=== PATIENT | female | born 1975 | race African-American/Black ===

== ENCOUNTER 2017-06-04 09:44 | Emergency (ER) | payer SELFPAY ==
[2017-06-04 10:03] VITALS: BMI 20.3
[2017-06-04] MEDS ORDERED: SODIUM CHLORIDE 1,000 ML IV STA (10:11)
[2017-06-04] MEDS ORDERED: ACETAMINOPHEN 1000 MG/100 ML VIAL (NON FORMULARY) IVPB ONE (10:11)
[2017-06-04] MEDS ORDERED: morphine CARPU-JECT 2 MG/1 ML DISP.SYRIN IVPUSH ONE (10:11)
[2017-06-04] MEDS ORDERED: ONDANSETRON 4 MG/2 ML VIAL IVPUSH ONE (10:11)
--- NOTE | 2017-06-04 10:17 | PDOC ---
History of Present Illness - General Chief Complaint: Pain Stated Complaint: ABD PAIN Time Seen by Provider: 06/04/17 10:00 History Source: Patient Exam Limitations: No Limitations - History of Present Illness Travel History: No Initial Comments: 06/04/17 10:12 This 41 yr old female with c/o severe abdominal cramps 04/08 causing vomiting and guarding to abd. she has attempted to use motrin but keeps vomiting it up after taking it. She is small frame. Last month she underwent similar pain and her [employer] with a finding + UTI, transvaginal neg for fibroids or ovarian cyst. Her tubes are tied and she has 4 live births without any misses/ . PMH: borderline HTN on no meds PSH: c section Meds none All: [facility] [employer] Dr. 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 Past History - Past Medical History Allergies/Adverse Reactions: Allergies Allergy/AdvReac Type Severity Reaction Status Date / Time No Known Allergies Allergy Verified 06/04/17 10:02 Home Medications: Ambulatory Orders Ibuprofen [Motrin -] 600 mg PO TID #21 tablet 06/04/17 Ondansetron [Zofran Odt -] 4 mg SL BID #14 od.tablet 06/04/17 Ranitidine [Zantac -] 150 mg PO BID #30 tablet 06/04/17 COPD: No DVT: No Thyroid Disease: No - Suicide/Smoking/Psychosocial Hx Smoking History: Never smoked Have you smoked in the past 12 months: No Number of Cigarettes Smoked Daily: 20 Information on smoking cessation initiated: No Hx Alcohol Use: No Drug/Substance Use Hx: No Substance Use Type: None Review of Systems - Review of Systems Able to Perform ROS?: Yes Constitutional: Yes: See HPI HEENTM: No: Symptoms Reported Respiratory: No: Symptoms reported Cardiac (ROS): No: Symptoms Reported ABD/GI: Yes: See HPI, Nausea, Poor Appetite, Poor Fluid Intake, Vomiting, Abdominal cramping, Tarry Stools. No: Abdominal Distended, Abd. Pain w/ defecation, Blood Streaked Bowels, Constipated, Diarrhea, Difficulty Swallowing , Rectal Bleeding, Indigestion : No: Burning, Dysuria, Discharge, Frequency, Hematuria, Pain Musculoskeletal: No: Symptoms Reported Integumentary: No: Symptoms Reported Neurological: No: Symptoms reported *Physical Exam - Vital Signs Last Vital Signs Temp Pulse Resp BP Pulse Ox 98.1 F 80 18 157/82 100 06/04/17 09:45 06/04/17 09:45 06/04/17 09:45 06/04/17 09:45 06/04/17 09:45 - Physical Exam General Appearance: Yes: Nourished, Thin HEENT: positive: Normal Voice Respiratory/Chest: positive: Lungs Clear Cardiovascular: positive: Regular Rate Gastrointestinal/Abdominal: positive: Tender, Flat, Soft, Guarding, Tenderness. negative: Organomegaly, Increased Bowel Sounds, Decreased BS, Protuberent, Distended, Hernia, Mass, Hepatomegaly, Spleenomegaly Musculoskeletal: positive: Normal Inspection Extremity: positive: Normal Inspection Integumentary: positive: Dry, Warm Neurologic: positive: Fully Oriented, Alert ED Treatment Course - LABORATORY CBC & Chemistry Diagram: 06/04/17 10:15 06/04/17 10:15 - RADIOLOGY Radiology Studies Ordered: Category Date Time Status TRANSVAGINAL ULTRASOUND US [US] Stat Ultrasound 06/04/17 10:11 Ordered Medical Decision Making - Medical Decision Making 06/04/17 10:20 This 41 yr old female with severe abdominal pain cramping seen in ER at bedside Abdominal pain is cramp like with n/v Afebrile Plan -UA -urine preg -labs -IVF -Zofran -tylenol and morphine -transvaginal u/s 06/04/17 12:19 ua neg labs stable pain resolving transvag shows 1.7 cm left ovarian cysgt will d/c with follow up and instructions *DC/Admit/Observation/Transfer Diagnosis at time of Disposition: Ovarian cyst Qualifiers: Laterality: left Qualified Code(s): N83.202 - Unspecified ovarian cyst, left side - Discharge Dispostion Disposition: HOME Condition at time of disposition: Stable Admit: No - Referrals - Patient Instructions Printed Discharge Instructions: DI for Dysmenorrhea, DI for Ovarian Cyst Additional Instructions: Discharge instruction 1. follow up with your [employer] this month and present your transvaginal u/s findings 2. take motrin for pain as needed. 3. use warm compress to the area of pain - Post Discharge Activity
[2017-06-04] MEDS ORDERED: ONDANSETRON 4 MG/2 ML VIAL ONE (10:20)
[2017-06-04] MEDS ORDERED: ACETAMINOPHEN INJECTION 100 ML IVPB ONE (10:20)
[2017-06-04] MEDS ORDERED: morphine SULFATE 4 MG/ML VIAL ONE (10:20)
[2017-06-04 10:34] LABS: BASOPHIL 0.3 % (0-2.0); EOSINOPHIL 0.2 % (0-4.5); MCH 26.4 pg (25.7-33.7); MCHC 32.6 g/dl (32.0-36.0); MEAN CELL VOLUME 81.2 fl (80-96); MEAN PLT VOLUME 8.4 fl (7.5-11.1); NEUTROPHILS 88.8 % (42.8-82.8); PLATELET COUNT 215 K/MM3 (134-434); RDW 14.1 % (11.6-15.6); WHITE BLOOD COUNT 10.2 K/mm3 (4.0-10.0)
[2017-06-04 10:38] LABS: URINE APPEARANCE SLCLOUDY; URINE BILIRUBIN NEGATIVE (NEGATIVE); URINE BLOOD 1+ (NEGATIVE); URINE COLOR YELLOW; URINE GLUCOSE (UA) NEGATIVE (NEGATIVE); URINE KETONE NEGATIVE (NEGATIVE); URINE NITRITE NEGATIVE (NEGATIVE); URINE UROBILINOGEN NEGATIVE mg/dL (0.2-1.0)
[2017-06-04 10:46] LABS: URINE PROTEIN 1+ (NEGATIVE)
[2017-06-04 10:58] LABS: ALBUMIN 4.7 g/dl (3.4-5.0); ANION GAP 6 (8-16); BILIRUBIN,TOTAL 0.8 mg/dL (0.2-1.0); CALCIUM 9.1 mg/dL (8.5-10.1); CO2 26 mmol/L (21-32); CREATININE 0.9 mg/dL (0.55-1.02); GLUCOSE,RANDOM 96 mg/dL (74-106); SGOT/AST 12 U/L (15-37); SGPT/ALT 18 U/L (12-78); TOT PROT 7.8 g/dl (6.4-8.2)
[2017-06-04 10:59] LABS: ALK PHOS 68 U/L (45-117)
[2017-06-04 11:32] LABS: URINE MUCUS RARE; URINE RBC 74 /hpf (0-3); URINE WBC 6 /hpf (3-5)
[2017-06-04 12:53] VITALS: BP 113/78; PULSE 68; TEMP 98.4
[2017-06-04 16:52] LABS: URINE LEUK ESTERASE Negative (NEGATIVE)
== END 2017-06-04 12:51 | disposition home or self-care (01) ==
LOC: JER 09:44
PROC: 3E033NZ Introduction of Analgesics, Hypnotics, Sedatives into Peripheral Vein, Percutaneous Approach (ICD-10-PCS; principal; 2017-06-04)
PROC: 3E033NZ Introduction of Analgesics, Hypnotics, Sedatives into Peripheral Vein, Percutaneous Approach (ICD-10-PCS; 2017-06-04)
PROC: 3E033GC Introduction of Other Therapeutic Substance into Peripheral Vein, Percutaneous Approach (ICD-10-PCS; 2017-06-04)
DX: N83.202 Unspecified ovarian cyst, left side (principal)
CPT/HCPCS: 36415; 76830-TC; 80053; 81003; 81015; 83690; 84703; 85025; 99282-25